=== PATIENT | female | born 1970 | race Caucasian/White ===

== ENCOUNTER 2021-04-22 18:59 | Emergency (ER) | payer OTHER, SELFPAY ==
[2021-04-22 19:11] VITALS: BP 146/89; PULSE 101; RESP 18; TEMP 37.1; O2SAT 97; BMI 18.2
[2021-04-22 22:55] LABS: Basophils # 0.1 10^3/uL (0.0-0.1); Basophils % 0.5 %; Eosinophils # 0.2 10^3/uL (0.0-0.8); Eosinophils % 1.3 %; Hematocrit 39.6 % (37.0-47.0); Hemoglobin 13.3 g/dL (11.5-15.3); Lymphocytes # 3.6 10^3/uL (0.8-4.8); Lymphocytes % 23.7 %; Mean Corpuscular HGB Conc 33.6 g/dL (30.0-36.0); Mean Corpuscular Hemoglobin 28.3 pg (28.0-34.0); Mean Corpuscular Volume 84.3 fl (81-99); Mean Platelet Volume 10.8 fL (7.4-10.4); Monocytes # 0.8 10^3/uL (0.2-0.9); Monocytes % 5.1 %; Neutrophils # 10.46 10^3/uL (1.8-7.7); Neutrophils % 69.1 %; Nucleated Red Blood Cells % 0 %; Platelet Count 308 10^3/cmm (130-400); White Blood Count 15.1 10^3/uL (4.0-10.0)
[2021-04-22 22:56] LABS: Add Urine Microscopic? NO; Charge for UA Resulting for Rev
[2021-04-22 23:00] LABS: Bilirubin Urine Neg (Negative); Blood Urine Neg (Negative); Glucose Urine UA Norm (Normal); Ketones Urine Negative (Negative); Leukocyte Esterase Urine Negative (Negative); Nitrate Urine Negative (Negative); Protein Urine Neg (Negative); Specific Gravity, Urine 1.005 (1.005-1.030); Urine Appearance Clear (CLEAR); Urine Color Yellow (Yellow); Urobilinogen Urine Norm (Negative); pH Urine 7 (5-7)
[2021-04-22 23:14] LABS: Alanine Aminotransferase 9 U/L (0-33); Albumin Level 4.5 g/dL (3.5-5.2); Alkaline Phosphatase 87 IU/L (35-105); Anion Gap 15.8 (5-19); Aspartate Amino Transferase 14 U/L (0-32); Blood Urea Nitrogen 12 mg/dL (6-20); Calcium 8.7 mg/dL (8.5-10.5); Carbon Dioxide 24 mmol/L (22-29); Chloride 102 mmol/L (98-107); Globulin 1.9 g/dL (1.3-4.6); Glucose 96 mg/dL (65-115); Lipase 20 U/L (13-60); Osmolality Calculated 286 mOsm/kg (285-295); Potassium 3.8 mmol/L (3.5-5.1); Sodium 138 mmol/L (136-145); Total Bilirubin 0.3 mg/dL (0.15-1.2); Total Protein 6.4 g/dL (6.6-8.7)
--- NOTE | 2021-04-22 23:44 | CTR_ITS ---
PROCEDURE INFORMATION: Exam: CT Abdomen And Pelvis With Contrast Exam date and time: 04/22/2021 11:44 PM Age: 50 years old Clinical indication: Other: Diarrhea; Abdominal pain; Localized; Lower; Prior surgery; Surgery date: 6+ months; Surgery type: Hyst, hernia; Patient HX: Bright red blood in stools; Additional info: Abd pain TECHNIQUE: Imaging protocol: Computed tomography of the abdomen and pelvis with contrast. Radiation optimization: All CT scans at this facility use at least one of these dose optimization techniques: automated exposure control; mA and/or kV adjustment per patient size (includes targeted exams where dose is matched to clinical indication); or iterative reconstruction. Contrast material: OMNI 300; Contrast volume: 75 ml; Contrast route: INTRAVENOUS (IV); COMPARISON: No relevant prior studies available. RADIATION DOSE METRICS: Total DLP (mGy-cm): 601.43 FINDINGS: Lungs: There is a noncalcified 5 mm nodule in the left lower lobe on axial series 2, image 6. Liver: The liver is normal. Gallbladder and bile ducts: The gallbladder is normal. There is no biliary dilation. Pancreas: The pancreas is unremarkable. Spleen: The spleen is unremarkable. Adrenal glands: The adrenal glands are unremarkable. Kidneys and ureters: The kidneys are unremarkable. No hydronephrosis or stones. No ureteral dilation. Stomach and bowel: The stomach is decompressed, preventing meaningful evaluation of wall thickness. The small bowel is nondilated. There is marked diffuse mucosal thickening in the distal descending and proximal sigmoid colon. Distal sigmoid colon is normal. The rectum is normal. Appendix: The appendix is normal. Intraperitoneal space: There is no free air or significant intraperitoneal free fluid. Vasculature: There is moderate aortic atherosclerotic disease. The portal, splenic and superior mesenteric veins are patent. Lymph nodes: There is no lymphadenopathy in the retroperitoneum, mesentery, pelvis or inguinal regions. Urinary bladder: The urinary bladder is decompressed, preventing meaningful evaluation of wall thickness. Reproductive: The uterus is absent. There is no adnexal mass or large cyst. Bones/joints: Bones are unremarkable. Soft tissues: The abdominal wall is intact. CT/CT abdomen pelvis w con* [id number] IMPRESSION: 1. Distal descending and proximal sigmoid colitis. Possible inflammatory bowel disease or infection. Ischemia is less likely in this distribution. 2. 5 mm left lower lobe pulmonary nodule. For patients at low risk (minimal or absent history of smoking and of other known risk factors), no routine follow-up is indicated. For patients at high risk (history of smoking or of other known risk factors), consider optional CT Chest at 12 months. (Reference: Marty) REFERENCES: Marty Bolaños et al. Guidelines for Management of Incidental Pulmonary Nodules Detected on CT Images: From the Fleischner Society 2017. Radiology. 2017;284(1):228-243.
--- NOTE | 2021-04-23 00:42 | ED_ITS ---
HPI - Abdominal Pain General: Chief Complaint: Abdominal Pain Stated Complaint: BM with Blood Time Seen by Provider: 04/23/21 00:02 Source: patient Mode of arrival: ambulatory Limitations: no limitations History of Present Illness: HPI narrative: 50-year-old female states that she has been having left lower quadrant abdominal pain with diffuse abdominal pain since this morning. States been a cramping type pain she rates a 7 out of 10. States she also had some bright red blood in her stool denies any vomiting. States pain is currently 7 out of 10 denies any worsening improving factors. Multiple abdominal surgeries states she is never had diverticulitis before. She denies any fevers. Associated Symptoms: Reports hematochezia; Denies chills, dysuria and fever(s) Review of Systems Const: Denies: fever(s), chills, body aches or change in appetite Eyes: Denies: blurry vision or eye discomfort ENMT: Denies: throat pain or dental pain Card: Denies: chest pain Resp: Denies: dyspnea GI: Reports: abdominal pain and hematochezia : Denies: dysuria Musc: Denies: neck pain or back pain Skin/Breast: Denies: rash Neuro: Denies: headache(s) Psych: Denies: depression Chang/Lymph: Denies: easy bruising All/Imm: Denies: urticaria PFSH ED PFSH: Surgical History (Updated 04/23/21 @ 00:42 by Oswaldo Mcgill MD) H/O: hysterectomy Social History (Updated 04/23/21 @ 00:43 by Oswaldo Mcgill MD) Substance/Drug Use: never Physical Exam Const: COMMON NORMALS: no acute distress, patient oriented x3 and healthy appearing HENMT: COMMON NORMALS: normocephalic and atraumatic HEAD & SCALP: normocephalic and atraumatic Eye: COMMON NORMALS: Equal, round and reactive pupils present and EOMs intact bilaterally PUPIL: Yes Equal, round and reactive pupils present Neck/C-Spine: COMMON NORMALS: full ROM and supple Chest: COMMONS NORMALS: normal inspection of the chest and normal palpation of entire chest wall Resp: COMMON NORMALS: normal respiratory effort, No retractions, No use of accessory muscles and clear to auscultation bilaterally AUSCULTATION: clear to auscultation bilaterally Cardio: COMMON NORMALS: regular rate, regular rhythm and No murmurs present (Cardio) RATE: regular rate RHYTHM: regular rhythm GI: COMMON NORMALS: Normal to inspection, nondistended, normoactive bowel sounds present, Soft to palpation and no masses PALPATION: Yes Soft to palpation and Yes Tenderness to palpation present (GI) Details: LLQ Extremity: COMMON NORMALS: normal to inspection and full ROM Neuro: COMMON NORMALS: patient oriented x3, moves all extremities and no focal motor deficits Psych: COMMON NORMALS: mental status grossly normal, Normal thought process pr esent and cooperative THOUGHT PROCESS: Normal thought process present Skin: COMMON NORMALS: no rashes or lesions noted and no wounds GENERAL SKIN EXAM: no rashes or lesions noted Course Vital Signs: Vital signs: Vital Signs Temperature 98.7 F 04/22/21 19:11 Pulse Rate 101 H 04/22/21 19:11 Respiratory Rate 18 04/22/21 19:11 Blood Pressure 147/84 04/23/21 01:13 Pulse Oximetry 97 04/22/21 19:11 MDM - Abdominal Pain MDM Narrative: Medical decision making narrative: Patient presents here with abdominal pain CT did show colitis she has no signs of ischemic bowel her lactate here is normal exam at discharge benign with no tenderness we will start her on antibiotics pain meds and nausea medicine she is to follow-up with general surgery return if worsening she understands agrees to plan. Lab Data: Labs: Lab Results 04/22/21 04/22/21 04/22/21 22:50 22:50 22:50 WBC 15.1 10^3/uL H 10 ^3/uL (4.0-10.0) RBC 4.70 10^6/uL 10^6 /uL (4.1-5.3) Hgb 13.3 g/dL g/dL (11.5-15.3) Hct 39.6 % % (37.0-47.0) MCV 84.3 fl fl (81-99) MCH 28.3 pg pg (28.0-34.0) MCHC 33.6 g/dL g/dL (30.0-36.0) RDW 12.0 % L % (12.1-15.1) Plt Count 308 10^3/cmm 10^3 /cmm (130-400) MPV 10.8 fL H fL (7.4-10.4) Neut % (Auto) 69.1 % % Lymph % (Auto) 23.7 % % [facility] % (Auto) 5.1 % % Eos % (Auto) 1.3 % % Baso % (Auto) 0.5 % % Neut # (Auto) 10.46 10^3/uL H 1 0^3/uL (1.8-7.7) Lymph # (Auto) 3.6 10^3/uL 10^3/ uL (0.8-4.8) [facility] # (Auto) 0.8 10^3/uL 10^3/ uL (0.2-0.9) Eos # (Auto) 0.2 10^3/uL 10^3/ uL (0.0-0.8) Baso # (Auto) 0.1 10^3/uL 10^3/ uL (0.0-0.1) Nucleated RBC % (a uto) 0 % % Nucleated RBCs # 0.0 /100WBC /100W BC Sodium 138 mmol/L mmol/L (136-145) Potassium 3.8 mmol/L mmol/L (3.5-5.1) Chloride 102 mmol/L mmol/L (98-107) Carbon Dioxide 24 mmol/L mmol/L (22-29) Anion Gap 15.8 (5-19) BUN 12 mg/dL mg/dL (6-20) Creatinine 0.4 mg/dL L mg/dL (0.5-0.9) GFR Calculation 169.0 mL/min H mL /min (90-130) Glucose 96 mg/dL mg/dL (65-115) Calculated Osmolal ity 286 mOsm/kg mOsm/ kg (285-295) Lactate Calcium 8.7 mg/dL mg/dL (8.5-10.5) Total Bilirubin 0.3 mg/dL mg/dL (0.15-1.2) AST 14 U/L U/L (0-32) ALT 9 U/L U/L (0-33) Alkaline Phosphata se 87 IU/L IU/L (35-105) Total Protein 6.4 g/dL L g/dL (6.6-8.7) Albumin 4.5 g/dL g/dL (3.5-5.2) Globulin 1.9 g/dL g/dL (1.3-4.6) Lipase 20 U/L U/L (13-60) Urine Color Yellow (Yellow) Urine Appearance Clear (CLEAR) Urine pH 7 (5-7) Ur Specific Gravit y 1.005 (1.005-1.030) Urine Protein Neg (Negative) Urine Glucose (UA) Norm (Normal) Urine Ketones Negative (Negative) Urine Blood Neg (Negative) Urine Nitrate Negative (Negative) Urine Bilirubin Neg (Negative) Urine Urobilinogen Norm mg/dL mg/dL (Negative) Ur Leukocyte Nola ase Negative (Negative) 04/23/21 02:00 WBC RBC Hgb Hct MCV MCH MCHC RDW Plt Count MPV Neut % (Auto) Lymph % (Auto) [facility] % (Auto) Eos % (Auto) Baso % (Auto) Neut # (Auto) Lymph # (Auto) [facility] # (Auto) Eos # (Auto) Baso # (Auto) Nucleated RBC % (a uto) Nucleated RBCs # Sodium Potassium Chloride Carbon Dioxide Anion Gap BUN Creatinine GFR Calculation Glucose Calculated Osmolal ity Lactate 0.5 mmol/L mmol/L (0.5-2.2) Calcium Total Bilirubin AST ALT Alkaline Phosphata se Total Protein Albumin Globulin Lipase Urine Color Urine Appearance Urine pH Ur Specific Gravit y Urine Protein Urine Glucose (UA) Urine Ketones Urine Blood Urine Nitrate Urine Bilirubin Urine Urobilinogen Ur Leukocyte Nola ase Imaging Data ^: CT Abd/Pel: Radiologist's impression: 1. Distal descending and proximal sigmoid colitis. Possible inflammatory bowel disease or infection. Ischemia is less likely in this distribution. 2. 5 mm left lower lobe pulmonary nodule. For patients at low risk (minimal or absent history of smoking and of other known risk factors), no routine follow-up is indicated. For patients at high risk (history of smoking or of other known risk factors), consider optional CT Chest at 12 months. (Reference: Marty) Discharge Plan Discharge Patient Disposition: Home Clinical Impression: Colitis Condition: Stable Prescriptions: New hydrocodone-acetaminophen 5-325 mg tablet 1 tab PO Q6H PRN (Reason: pain) Qty: 14 RF: 0 ondansetron 4 mg tablet,disintegrating 4 mg PO Q6H PRN (Reason: nausea and vomiting) Qty: 14 RF: 0 Flagyl 500 mg tablet 500 mg PO Q8H 7 Days Qty: 21 RF: 0 ciprofloxacin HCl 500 mg tablet 500 mg PO BID Qty: 14 RF: 0 Discharge Orders: Discharge ED (Routine); Ordered 04/23/21 Ordered By: Oswaldo Mcgill Referrals: Guille Callaway MD [Physician] - 1-3 days Discharge Diet: Advance as tolerated Discharge Activity: Resume usual activity Patient Instructions: Colitis (ED) Coding Level of Care Code ED Radiology Interventional Physician for Chg Fwd Exam Comprehensive
[2021-04-23] MEDS: iohexol 300 mg/mL 100 mL Btl IV (01:01)
[2021-04-23 01:13] VITALS: BP 147/84
[2021-04-23 02:22] LABS: Lactate (Lactic Acid level) 0.5 mmol/L (0.5-2.2)
--- NOTE | 2021-04-23 11:25 | DCPLANNER ---
Addendum entered by Kristie Starkey 05/24/21 11:19: Patient had a follow up appointment scheduled for 05.07.[address] Bills at general surgery - patient did attend appointment. Addendum entered by Kristie Starkey 05/03/21 12:41: Patient had a follow up appointment scheduled for Friday, May 07, 2021 at 8:[address] Bills. Clinic will call patient with appointment information. Addendum entered by Kristie Starkey 04/25/21 13:45: Patient called gearcase assembler and left a message stating that Dr. Callaway's office does not accept her insurance. data management manager spoke with patient, she stated that she would like to be referred to [facility] General Surgery if they will accept her insurance. data management manager emailed patients information to Luisana Argueta and Tiara at [facility] General Surgery. Patients information will be printed and reviewed. Clinic will call patient with appointment information. Original Note: data management manager had message to schedule a follow up appointment for patient with Dr. Callaway. data management manager faxed patients information to the office of Dr. Callaway, patients information will be reviewed. Clinic will call patient with appointment information. data management manager called patient to let patient know that her information had been faxed to Dr. Barbosa office. data management manager was unable to speak with patient at this time, a voicemail was left for patient.
== END 2021-04-23 02:44 | disposition home or self-care (01) ==
PROVIDERS: Emergency Provider Emergency Medicine
DX: K52.9 Noninfective gastroenteritis and colitis, unspecified (principal)
CPT/HCPCS: 74177; 80053; 81003; 83605; 83690; 85025; 99283; Q9967

== ENCOUNTER → 2021-06-03 13:07 | Outpatient (BNVA) | payer OTHER, SELFPAY | PROVIDERS: Visit Provider Surgery | DX: Z11.52 Encounter for screening for COVID-19 (principal) | CPT/HCPCS: 87635 ==

== ENCOUNTER 2021-06-07 06:32 | Day surgery (SDC) | payer OTHER, SELFPAY ==
[2021-06-04 15:20] VITALS: BMI 16.9
--- NOTE | 2021-06-07 07:22 | W.PM.OPSFHP ---
Same Day Surgery H&P Indication for Procedure/HPI DATE OF PROCEDURE: June 07, 2021 CHIEF COMPLAINT/INDICATIONFOR SURGICAL PROCEDURE: colonoscopy PREOP DIAGNOSIS: diagnostic PLANNED PROCEDURE: Operation Date: 06/07/21 08:00 Proposed Procedures p Colonoscopy 35238/k52.9(Not Applicable) - Aris Bills MD Medications/Allergies* Home Medications Medication Instructions Recorded Confirmed Type acetaminophen 325 mg capsule 500 mg PO PRN PRN 06/04/21 06/04/21 History (Tylenol) Allergies/Adverse Reactions Allergy/AdvReac Type Severity Reaction Status Date / Time codeine Allergy ADR-Vomitin Verified 05/07/21 08:04 g Pertinent History/Comorbid Conditions* Medical History (Updated 05/07/21 @ 16:14 by Aris Bills MD) Endometriosis Surgical History (Updated 05/07/21 @ 08:27 by Aris Bills MD) H/O: hysterectomy History of inguinal hernia repair lap-left-10+yrs S/P MARÍA-BSO Status post colonoscopy Family History (Updated 05/07/21 @ 08:12 by Tiara Fischer) Diabetes CAD (coronary artery disease) Cancer Denies family history of Dementia Chronic kidney disease (CKD) Stroke Social History Smoking and tobacco status: current every day smoker Alcohol intake: never Lives independently: Yes Household members: spouse Marital status: Pertinent Exam Findings alert, oriented x 3 and regular rate & rhythm Recommendations Surgery/Procedure today Coding Level of Care Code Acute Water Systems Engineer for Filipe Ko
[2021-06-07 07:34] VITALS: BP 117/86; PULSE 83; RESP 18; TEMP 36.4; O2SAT 96
--- NOTE | 2021-06-07 07:44 | ANES.PREANE2 ---
Pre-Anesthetic Assessment Height/Weight: Height 1.6 m Weight 43.545 kg Temp Pulse Resp BP Pulse Ox 97.6 F 83 18 117/86 96 06/07/21 07:34 06/07/21 07:34 06/07/21 07:34 06/07/21 07:34 06/07/21 07:34 Preop Diagnosis: diagnostic Operation Date: 06/07/21 08:00 Proposed Procedures p Colonoscopy 11501/k52.9(Not Applicable) - Aris Bills MD Familial anesthetic complications: None Was Beta Aryan taken within 24 hours: N/A Was Clonidine taken within 24 hours: N/A Last intake: Intake Last Liquid Date 06/06/21 Last Liquid Time 23:00 Last Solid Date 06/05/21 Last Solid Time 18:00 Social Tobacco and No alcohol Exam alert, oriented x 3, clear to auscultation bilaterally and regular rate & rhythm Airway Submandibular: within normal limits Cervical ROM: within normal limits Mallampati: Class I Dentition: partials Pulmonary None reported CV/HEM None reported METS > 4 None reported Hepatic None reported GI None reported Metabolic None reported Musc/skel None reported Neuropsych None reported Anesthetic Plan ASA status: 2 Anesthesia: Anesthesia Evaluation, General and MAC Other: I discussed with the patient risks, goals, and benefits of MAC and general anesthesia. We discussed spectrum of MAC anesthesia including conversion to general as well as possibility of recall of intraoperative stimuli including discomfort/pain. Patient agrees to proceed with MAC. Risk of > 500 ml blood loss (7ml/kg in children): No Medications/Allergies Home Medications Medication Instructions Recorded Confirmed Last Taken Type acetaminophen 325 mg capsule 500 mg PO PRN PRN 06/04/21 06/07/21 06/04/21 History (Tylenol) Allergies Allergy/AdvReac Type Severity Reaction Status Date / Time codeine Allergy ADR-Vomitin Verified 05/07/21 08:04 g PFSH Anesthesia Medical History Endometriosis Surgical History H/O: hysterectomy History of inguinal hernia repair lap-left-10+yrs S/P MARÍA-BSO Status post colonoscopy Family History Other CAD (coronary artery disease) Cancer Diabetes Denies family history of Dementia Chronic kidney disease (CKD) Stroke Social History Smoking and tobacco status: current every day smoker Alcohol intake: never Lives independently: Yes Household members: spouse Marital status: Data Anesthesia Cardiac Studies: No Data to Display
[2021-06-07] MEDS: sodium chloride 0.9% 1,000 ML 30 ML IV (07:55)
[2021-06-07 08:34] VITALS: BP 120/81; PULSE 104; RESP 16; TEMP 36.1; O2SAT 98
[2021-06-07 08:41] VITALS: BP 121/72; PULSE 109; RESP 18; O2SAT 100
--- NOTE | 2021-06-07 13:42 | ANE.PACU2 ---
Inpatient post-anesthesia follow up: Airway intact: Yes Vital signs: Temperature 97 F Pulse Rate 109 Respiratory Rate 18 Blood Pressure 121/72 Pulse Oximetry 100 Oxygen Delivery Me thod Room Air Oxygen Flow Rate 3 Fraction of Inspir ed Oxygen Hydration adequate: Yes Nausea and vomiting: No Pain level: 1 Mental status: Baseline
== END 2021-06-07 08:56 | disposition home or self-care (01) ==
PROVIDERS: Visit Provider Surgery
PROC: 0DJD8ZZ Inspection of Lower Intestinal Tract, Via Natural or Artificial Opening Endoscopic (ICD-10-PCS; CPT 45378; principal; 2021-06-07 08:00)
DX: K52.9 Noninfective gastroenteritis and colitis, unspecified (principal); K64.8 Other hemorrhoids; Z82.49 Family history of ischemic heart disease and other diseases of the circulatory system; F17.210 Nicotine dependence, cigarettes, uncomplicated
CPT/HCPCS: 45378; J2704; J7030

== ENCOUNTER → 2021-06-12 08:33 | Outpatient (BNVA) | payer OTHER, SELFPAY | PROVIDERS: Visit Provider Family Medicine | DX: Z13.220 Encounter for screening for lipoid disorders (principal); Z13.6 Encounter for screening for cardiovascular disorders; F17.218 Nicotine dependence, cigarettes, with other nicotine-induced disorders; Z76.89 Persons encountering health services in other specified circumstances | CPT/HCPCS: 80061 ==

== ENCOUNTER 2022-04-25 22:47 | Emergency (ER) | payer SELFPAY ==
[2022-04-25 22:48] VITALS: BP 130/86; PULSE 92; RESP 22; TEMP 36.8; O2SAT 100; BMI 15.9
--- NOTE | 2022-04-25 23:00 | ED_ITS ---
HPI - Abdominal Pain General: Chief Complaint: Abdominal Pain Stated Complaint: ABD PAIN/SYNCOPAL Time Seen by Provider: 04/25/22 22:56 Source: patient and family History of Present Illness: 51-year-old female with a history of colitis evidently. She is also had multiple abdominal surgeries including hysterectomy, oophorectomy, hernia repair, etc. She presents with lower abdominal pain that was sudden in onset this evening. It was so severe, that she began to feel faint, and collapsed passing out very briefly for a few seconds. Her son did not see this episode. She does not remember it. He believes she may have hit her head, although she has no headache or tenderness to her scalp. She continues to have belly pain though. No fever. No vomiting. No diarrhea. MD elicited complaint: abdominal pain Pertinent past history: other Onset (ago): hour(s) Pain Consistency: constant Location: RLQ, LLQ and Suprapubic Severity: severe Quality: stabbing Migration to: no migration Exacerbating factors: nothing Relieving factors: nothing Associated Symptoms: Reports nausea and syncope; Denies chills, constipation, diarrhea, fever(s) and vomiting Review of Systems Const: Denies: fever(s) or chills ENMT: Denies: throat pain Card: Reports: syncope; Denies: chest pain or palpitations Resp: Denies: dyspnea GI: Reports: nausea; Denies: vomiting, diarrhea or constipation : Denies: flank pain Musc: Denies: back pain PFS ED PFSH: Medical History Endometriosis Surgical History H/O: hysterectomy History of inguinal hernia repair lap-left-10+yrs S/P MARÍA-BSO Status post colonoscopy (06/07/21) Family History Other CAD (coronary artery disease) Cancer Diabetes Denies family history of Dementia Chronic kidney disease (CKD) Stroke Social History Smoking and tobacco status: current every day smoker cigarettes Alcohol intake: current Alcohol intake frequency: holidays/special occasions only Lives independently: Yes Household members: spouse Marital status: Physical Exam Const: COMMON NORMALS: no acute distress GENERAL APPEARANCE: cooperative; not ill appearing and not frail appearing HENMT: COMMON NORMALS: normocephalic, atraumatic and Normal external nose present HEAD & SCALP: normocephalic and atraumatic FACE & SINUS: normal facial exam and face symmetric NOSE: Normal external nose present Eye: COMMON NORMALS: Equal, round and reactive pupils present and EOMs intact bilaterally PUPIL: Yes Equal, round and reactive pupils present Neck/C-Spine: GENERAL: Yes trachea midline Chest: CHEST: Yes Symmetrical chest wall rise Resp: COMMON NORMALS: normal respiratory effort, No retractions, No use of accessory muscles and clear to auscultation bilaterally AUSCULTATION: clear to auscultation bilaterally Cardio: COMMON NORMALS: regular rate and regular rhythm RATE: regular rate RHYTHM: regular rhythm GI: COMMON NORMALS: Soft to palpation INSPECTION: Yes abdominal distension PALPATION: Yes Soft to palpation and Yes Tenderness to palpation present (GI) Details: LLQ and RLQ Extremity: COMMON NORMALS: no pedal edema Neuro: KEATON COMA SCALE: document GCS findings Twilight coma scale eye opening: Spontaneous [place] coma scale verbal response: Orientated Twilight coma scale motor response: Obey commands Twilight coma scale total score: 15 SENSORY EXAM: Yes extremities (intact) Psych: COMMON NORMALS: speech normal SPEECH: Yes normal speech Skin: COMMON NORMALS: no rashes or lesions noted GENERAL SKIN EXAM: no rashes or lesions noted Course Vital Signs: Vital signs: Vital Signs Temperature 98.3 F 04/25/22 22:48 Pulse Rate 82 04/26/22 00:33 Respiratory Rate 16 04/26/22 00:17 Blood Pressure 128/79 04/26/22 00:33 Pulse Oximetry 97 04/26/22 00:33 Oxygen Delivery Me thod 04/26/22 00:33 MDM - Abdominal Pain Medical Decision Making Her white blood cell count is 14. CBC is otherwise unremarkable. BMP is not remarkable. Urinalysis is negative. Liver enzymes are normal. CRP is only 3. CT shows a prominent fluid in the small bowel without dilatation suggestive of an enteritis. With elevation in her white blood cell count she will be treated. Her head CT is negative. Her EKG shows a sinus rhythm with incomplete right bundle branch block, normal axis, rate of [address] changes. Lab Data 04/25/22 23:30 04/25/22 23:30 Labs/Radiology: Radiology Impressions Abdomen/Pelvis CT 04/25/22 23:17 IMPRESSION: 1. Prominent fluid in the small bowel without dilation suggestive of an enteritis. 2. Left lower lobe 5.7 mm pulmonary nodule similar to prior exam, stability suggests a benign process. Head CT 04/25/22 23:17 IMPRESSION: No evidence of acute intracranial hemorrhage, mass effect, or midline shift. Laboratory Results WBC 13.9 10^3/uL (4.0-10.0) H 04/25/22 23:30 RBC 4.22 10^6/uL (4.1-5.3) 04/25/22 23:30 Hgb 11.7 g/dL (11.5-15.3) 04/25/22 23:30 Hct 37.1 % (37.0-47.0) 04/25/22 23:30 MCV 87.9 fl (81-99) 04/25/22 23: MCH 27.7 pg (28.0-34.0) L 04/25/22 23: MCHC 31.5 g/dL (30.0-36.0) 04/25/22 23: RDW 12.0 % (12.1-15.1) L 04/25/22 23: Plt Count 288 10^3/cmm (130-400) 04/25/22 23:30 MPV 10.4 fL (7.4-10.4) 04/25/22 23: Neut % (Auto) 74.5 % 04/25/22 23: Lymph % (Auto) 17.2 % 04/25/22 23:30 [place] % (Auto) 6.6 % 04/25/22 23:30 Eos % (Auto) 0.9 % 04/25/22 23: Baso % (Auto) 0.4 % 04/25/22 23: Neut # (Auto) 10.35 10^3/uL (1.8-7.7) H 04/25/22 23:30 Lymph # (Auto) 2.4 10^3/uL (0.8-4.8) 04/25/22 23: [place] # (Auto) 0.9 10^3/uL (0.2-0.9) 04/25/22 23:30 Eos # (Auto) 0.1 10^3/uL (0.0-0.8) 04/25/22: Baso # (Auto) 0.1 10^3/uL (0.0-0.1) 04/25/22 23:30 Nucleated RBC % (auto) 0 % 04/25/22 Nucleated RBCs # 0.0 /100WBC 04/25/22 Sodium 135 mmol/L (136-145) L 04/25/22: Potassium 3.9 mmol/L (3.5-5.1) 04/25/22: Chloride 99 mmol/L (98-107) 04/25/22: Carbon Dioxide 23 mmol/L (22-29) 04/25/22 Anion Gap 16.9 (5-19) 04/25/22 BUN 11 mg/dL (6-20) 04/25/22: Creatinine 0.5 mg/dL (0.5-0.9) 04/25/22 GFR Calculation 130.1 mL/min (90-130) H 04/25/22: Glucose 101 mg/dL (65-115) 04/25/22 Calculated Osmolality 280 mOsm/kg (285-295) L 04/25/22 Calcium 9.1 mg/dL (8.5-10.5) 04/25/22: Total Bilirubin 0.2 mg/dL (0.15-1.2) 04/25/22 AST 17 U/L (0-32) 04/25/22: ALT 9 U/L (0-33) 04/25/22: Alkaline Phosphatase 84 U/L (35-105) 04/25/22 C-Reactive Protein 3.0 mg/L (0.0-4.9) 04/25/22: Total Protein 6.4 g/dL (6.6-8.7) L 04/25/22 Albumin 4.1 g/dL (3.5-5.2) 04/25/22 Globulin 2.3 g/dL (1.3-4.6) 04/25/22 23:30 Lipase 45 U/L (13-60) 04/25/22 23:30 Urine Color Yellow (Yellow) 04/26/22 00:03 Urine Appearance Sl hazy (CLEAR) A 04/26/22 00:03 Urine pH 8 (5-7) H 04/26/22 00:03 Ur Specific [place] 1.010 (1.005-1.030) 04/26/22 00:03 Urine Protein Neg (Negative) 04/26/22 00:03 Urine Glucose (UA) Norm (Normal) 04/26/22 00:03 Urine Ketones Negative (Negative) 04/26/22 00:03 Urine Blood Neg (Negative) 04/26/22 00:03 Urine Nitrate Negative (Negative) 04/26/22 00:03 Urine Bilirubin Neg (Negative) 04/26/22 00:03 Prot Sulfosalicylic Acd Negative (Negative) 04/26/22 00:03 Urine Urobilinogen Neg mg/dL (Negative) 04/26/22 00:03 Ur Leukocyte Esterase 1+ (Negative) H 04/26/22 00:03 Urine RBC 0-4 /hpf (0-2) H 04/26/22 00:03 Urine WBC 0-4 /hpf (0-5) H 04/26/22 00:03 Ur Squamous Epith Cells 0-4 /hpf (0-5) H 04/26/22 00:03 Amorphous Sediment Not Reportable 04/26/22 00:03 Urine Bacteria 1+ /hpf (NONE) H 04/26/22 00:03 Urine Mucus Trace /hpf 04/26/22 00:03 Discharge Plan Discharge Patient Disposition: Home Clinical Impression: Enteritis, Syncope Condition: Stable Prescriptions: New metronidazole 500 mg tablet 500 mg PO TID Qty: 21 0RF ketorolac 10 mg tablet 10 mg PO TID PRN (Reason: pain) Qty: 10 0RF No Action bupropion HCl [Wellbutrin SR] 150 mg tablet sustained-release 12 hr 150 mg PO DAILY Qty: 30 2RF atorvastatin 80 mg tablet 80 mg PO DAILY Qty: 30 2RF varenicline 0.5 mg tablet 0.5 mg PO DAILY Qty: 30 0RF Rx Instructions: Daily x 1 month. acetaminophen [Tylenol] 325 mg Capsule 500 mg PO PRN PRN (Reason: Pain (Scale Score 1-3)) Discharge Orders: Discharge ED (Routine); Ordered 04/26/22 Ordered By: Jimmy Oden Discharge Diet: Advance as tolerated and Clear Liquid Discharge Activity: Increase activity as tolerated Patient Instructions: Syncope (ED), Enteritis (ED), Opioid Safety, Pain Management Activity Restrictions/Additional Instructions: Return for repeated episodes of syncope or passing out, worsening pain despite treatment, vomiting liquids or medications despite treatment, fever despite 3-4 doses of antibiotics, other concerning symptoms. Coding Level of Care Code ED Land Use Planner for Chg Fwd Exam Comprehensive
--- NOTE | 2022-04-25 23:17 | CTR_ITS ---
PROCEDURE INFORMATION: Exam: CT Abdomen And Pelvis With Contrast Exam date and time: 04/25/2022 11:49 PM Age: 51 years old Clinical indication: Abdominal pain; Localized; Lower; Prior surgery; Surgery date: 6+ months; Surgery type: Hysterectomy, hernia repair; Additional info: Lower abdominal pain TECHNIQUE: Imaging protocol: Computed tomography of the abdomen and pelvis with contrast. Radiation optimization: All CT scans at this facility use at least one of these dose optimization techniques: automated exposure control; mA and/or kV adjustment per patient size (includes targeted exams where dose is matched to clinical indication); or iterative reconstruction. Contrast material: OMNI 350; Contrast volume: 60 ml; Contrast route: INTRAVENOUS (IV); Other protocol: This patient has received [address] and 0 known cardiac nuclear medicine studies in the 12 months prior to the current study. COMPARISON: CT abdomen pelvis w con* [id number] 04/23/2021 1:01 AM RADIATION DOSE METRICS: Total DLP (mGy-cm): 277.32 FINDINGS: Lungs: Left lower lobe 5.7 mm pulmonary nodule similar to prior exam. Liver: Normal. No mass. Gallbladder and bile ducts: Normal. No calcified stones. No ductal dilation. Pancreas: Normal. No ductal dilation. Spleen: Normal. No splenomegaly. Adrenal glands: Normal. No mass. Kidneys and ureters: Normal. No hydronephrosis. Stomach and bowel: Prominent fluid in the small bowel without dilation suggestive of an enteritis. Appendix: No evidence of appendicitis. Intraperitoneal space: Unremarkable. No free air. No significant fluid collection. Vasculature: Unremarkable. No abdominal aortic aneurysm. Lymph nodes: Unremarkable. No enlarged lymph nodes. Urinary bladder: Unremarkable as visualized. Reproductive: Unremarkable as visualized. Bones/joints: Unremarkable. No acute fracture. Soft tissues: Unremarkable. CT/CT abdomen pelvis w con* [id number] IMPRESSION: 1. Prominent fluid in the small bowel without dilation suggestive of an enteritis. 2. Left lower lobe 5.7 mm pulmonary nodule similar to prior exam, stability suggests a benign process.
--- NOTE | 2022-04-25 23:17 | CTR_ITS ---
PROCEDURE INFORMATION: Exam: CT Head Without Contrast Exam date and time: 04/25/2022 11:45 PM Age: 51 years old Clinical indication: Syncope and collapse TECHNIQUE: Imaging protocol: Computed tomography of the head without contrast. Radiation optimization: All CT scans at this facility use at least one of these dose optimization techniques: automated exposure control; mA and/or kV adjustment per patient size (includes targeted exams where dose is matched to clinical indication); or iterative reconstruction. Other protocol: This patient has received [address] and 0 known cardiac nuclear medicine studies in the 12 months prior to the current study. COMPARISON: No relevant prior studies available. RADIATION DOSE METRICS: Total DLP (mGy-cm): 989.83 FINDINGS: Brain: No acute intra- or extra axial fluid collections are identified. The basal cisterns are patent. No mass effect or midline shift is seen. The almanzar-white matter differentiation is normal. Subjective mild generalized volume loss with mild prominence of the sulci, particularly along the frontal and parietal sulci. There is mild prominence of the supra vermian cistern. 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 Cerebral ventricles: The ventricles are of normal size, shape, and morphology. Paranasal sinuses: The paranasal sinuses appear grossly clear. Mastoid air cells: The mastoid air cells appear grossly clear. Orbital cavities: The orbits appear normal. Bones/joints: No acute calvarial fracture is identified. Soft tissues: No soft tissue abnormalities identified. Vasculature: There are atherosclerotic calcifications of the carotid siphons and the V4 segment of the right vertebral artery. CT/CT head wo con* [id number] IMPRESSION: No evidence of acute intracranial hemorrhage, mass effect, or midline shift.
--- NOTE | 2022-04-25 23:17 | ECG_ITS ---
[facility] Test Date: 2022-04-25 Pat Name: Maylin Wise Department: Room: Gender: Female Slitter And Rewinder: : 1970 Requested By: Jimmy Cash Order Number: [id number] Sybil MD: Willian Baker M.D. Measurements Intervals [place] Rate: 85 P: 81 TX: 149 QRS: 82 QRSD: 96 T: 68 QT: 368 QTc: 439 Interpretive Statements SINUS RHYTHM INCOMPLETE RIGHT BUNDLE BRANCH BLOCK [90+ ms QRS DURATION, TERMINAL R IN V1/V2, 40+ ms S IN I/aVL/V4/V5/V6] No previous ECG available for comparison Electronically Signed On 04-27-2022 11:25:37 CORRECTIONAL FACILITY PSYCHIATRIST by Willian Baker M.D. [email or web address]
[2022-04-25] MEDS: sodium chloride 0.9% 1,000 ML 999 ML IV (23:39)
[2022-04-25 23:43] LABS: Basophils # 0.1 10^3/uL (0.0-0.1); Basophils % 0.4 %; Eosinophils # 0.1 10^3/uL (0.0-0.8); Eosinophils % 0.9 %; Hematocrit 37.1 % (37.0-47.0); Hemoglobin 11.7 g/dL (11.5-15.3); Lymphocytes # 2.4 10^3/uL (0.8-4.8); Lymphocytes % 17.2 %; Mean Corpuscular HGB Conc 31.5 g/dL (30.0-36.0); Mean Corpuscular Hemoglobin 27.7 pg (28.0-34.0); Mean Corpuscular Volume 87.9 fl (81-99); Mean Platelet Volume 10.4 fL (7.4-10.4); Monocytes # 0.9 10^3/uL (0.2-0.9); Monocytes % 6.6 %; Neutrophils # 10.35 10^3/uL (1.8-7.7); Neutrophils % 74.5 %; Nucleated Red Blood Cells % 0 %; Platelet Count 288 10^3/cmm (130-400); Red Blood Count 4.22 10^6/uL (4.1-5.3); White Blood Count 13.9 10^3/uL (4.0-10.0)
[2022-04-25] MEDS: iohexol 350 mg/mL 500 mL Btl (per mL) IV (23:56)
[2022-04-25 23:59] LABS: Alanine Aminotransferase 9 U/L (0-33); Albumin Level 4.1 g/dL (3.5-5.2); Alkaline Phosphatase 84 U/L (35-105); Blood Urea Nitrogen 11 mg/dL (6-20); Calcium 9.1 mg/dL (8.5-10.5); Carbon Dioxide 23 mmol/L (22-29); Chloride 99 mmol/L (98-107); Globulin 2.3 g/dL (1.3-4.6); Glomerular Filtration Rate 130.1 mL/min (90-130); Glucose 101 mg/dL (65-115); Lipase 45 U/L (13-60); Osmolality Calculated 280 mOsm/kg (285-295); Sodium 135 mmol/L (136-145); Total Bilirubin 0.2 mg/dL (0.15-1.2); Total Protein 6.4 g/dL (6.6-8.7)
[2022-04-26 00:01] LABS: Anion Gap 16.9 (5-19); Aspartate Amino Transferase 17 U/L (0-32); Potassium 3.9 mmol/L (3.5-5.1)
[2022-04-26 00:15] VITALS: RESP 16; O2SAT 98
[2022-04-26] MEDS: ondansetron 2 mg/ML SDV 2 mL 4 MG IVP (00:15)
[2022-04-26] MEDS: morphine 4 mg/mL SDV 1 mL IVP (00:15)
[2022-04-26 00:16] LABS: Urine Appearance SL Hazy (CLEAR); Urine Color Yellow (Yellow); pH Urine 8 (5-7)
[2022-04-26 00:17] VITALS: BP 115/71; PULSE 84; RESP 16; O2SAT 97
[2022-04-26 00:17] LABS: Add Urine Microscopic? YES; Bilirubin Urine Neg (Negative); Blood Urine Neg (Negative); Glucose Urine UA Norm (Normal); Ketones Urine Negative (Negative); Leukocyte Esterase Urine 1+ (Negative); Nitrate Urine Negative (Negative); Protein Urine Neg (Negative); Sulfosalicylic Acid Urine Negative (Negative); Urobilinogen Urine Neg (Negative)
[2022-04-26 00:19] LABS: Add Urine Culture? No; Bacteria Urine 1+ /hpf; Mucus Urine TRACE /hpf; RBC Urine 0-4 /hpf (0-2); Squamous Epithelial Cell Urine 0-4 /hpf (0-5); WBC Urine 0-4 /hpf (0-5)
[2022-04-26 00:33] VITALS: BP 128/79; PULSE 82; O2SAT 97
[2022-04-26] MEDS: metroNIDAZOLE 500 MG Tablet PO (01:15)
[2022-04-26] MEDS: ciprofloxacin 500 mg Tablet PO (01:15)
== END 2022-04-26 01:18 | disposition home or self-care (01) ==
PROVIDERS: Emergency Provider Emergency Medicine
DX: K52.9 Noninfective gastroenteritis and colitis, unspecified (principal); R55 Syncope and collapse; F17.210 Nicotine dependence, cigarettes, uncomplicated
CPT/HCPCS: 70450; 74177; 80053; 81001; 83690; 85025; 86140; 93005; 96361; 96374; 96375; 99285; J2270; J2405; J7030; Q9967

== ENCOUNTER 2023-08-29 19:27 | Emergency (ER) | payer SELFPAY ==
[2023-08-29 19:27] VITALS: BP 124/73; PULSE 78; RESP 16; TEMP 37.1; O2SAT 96; BMI 16.8
--- NOTE | 2023-08-29 19:38 | CTR_ITS ---
PROCEDURE INFORMATION: Exam: CT Head Without Contrast Exam date and time: 08/29/2023 7:59 PM Age: 53 years old Clinical indication: Pain; Headache; Patient HX: Severe occipital AGGARWAL with dizziness. ; Additional info: Worst headache of her life TECHNIQUE: Imaging protocol: Computed tomography of the head without contrast. Radiation optimization: All CT scans at this facility use at least one of these dose optimization techniques: automated exposure control; mA and/or kV adjustment per patient size (includes targeted exams where dose is matched to clinical indication); or iterative reconstruction. COMPARISON: CT head wo con* [id number] 04/25/2022 11:45 PM RADIATION DOSE METRICS: Total DLP (mGy-cm): 941.08 FINDINGS: Brain: The brain is unremarkable. There is no mass effect or significant white matter disease. There is no acute intracranial hemorrhage. There is partially imaged right cerebellar tonsillar ectopia, similar to 04/25/2022. Cerebral ventricles: There is no significant ventricular dilation. The basal cisterns are unremarkable. Paranasal sinuses: The paranasal sinuses are clear. Mastoid air cells: The mastoid air cells are clear. Bones: The calvarium is intact. Soft tissues: The visible extracranial soft tissues are unremarkable. CT/CT head wo con* [id number] IMPRESSION: No acute intracranial abnormality.
[2023-08-29 20:20] LABS: Basophils % 0.5 %; Eosinophils % 0.3 %; Hematocrit 39.8 % (36-47); Lymphocytes # 0.7 10^3/uL (0.8-4.8); Lymphocytes % 8.7 %; Mean Corpuscular HGB Conc 33.9 g/dL (30-55); Mean Corpuscular Hemoglobin 28.5 pg (27-33); Mean Platelet Volume 10.1 fL (7.4-10.4); Monocytes # 0.7 10^3/uL (0.2-0.9); Monocytes % 9.2 %; Neutrophils % 81.2 %; Nucleated Red Blood Cells % 0 %; Platelet Count 276 10^3/cmm (157-399); Red Blood Count 4.74 10^6/uL (3.85-5.65); Red Cell Distribution Width 11.9 % (12.1-15.1); White Blood Count 7.51 10^3/uL (3.29-11.43)
[2023-08-29] MEDS: diphenhydrAMINE 50 mg/mL SDV 1mL 25 MG IVP (20:23)
[2023-08-29] MEDS: prochlorperazine 10 mg/2 mL Inj IVP (20:24)
[2023-08-29] MEDS: sodium chloride 0.9% 500 ML IV (20:25)
[2023-08-29 20:34] VITALS: BP 128/82; PULSE 80; O2SAT 95
[2023-08-29 20:38] LABS: Add Urine Microscopic? NO; Charge for UA Resulting for Rev
[2023-08-29 20:45] LABS: Glucose Urine UA Norm (Normal); Protein Urine Neg (Negative); Specific Gravity, Urine 1.005 (1.005-1.030); Urine Appearance Clear (CLEAR); Urine Color Yellow (Yellow); pH Urine 7 (5-7)
[2023-08-29 20:46] LABS: Bilirubin Urine Neg (Negative); Blood Urine Neg (Negative); Ketones Urine 1+ (Negative); Leukocyte Esterase Urine Negative (Negative); Nitrate Urine Negative (Negative); Urobilinogen Urine Neg (Negative)
[2023-08-29 21:12] LABS: Alanine Aminotransferase 8 U/L (0-33); Albumin Level 4.3 g/dL (3.5-5.2); Alkaline Phosphatase 86 U/L (35-105); Anion Gap 19.8 (5-19); Aspartate Amino Transferase 14 U/L (0-32); Blood Urea Nitrogen 8 mg/dL (6-20); Calcium 8.9 mg/dL (8.5-10.5); Carbon Dioxide 19 mmol/L (22-29); Chloride 107 mmol/L (98-107); Creatinine Clr Calc Pharmacy 73.7634; Glomerular Filtration Rate 104.6 mL/min (90-130); Glucose 104 mg/dL (65-115); Magnesium 1.9 mg/dL (1.7-2.3); Osmolality Calculated 293 mOsm/kg (285-295); Potassium 3.8 mmol/L (3.5-5.1); Sodium 142 mmol/L (136-145); Total Bilirubin 0.4 mg/dL (0.15-1.2); Total Protein 7.3 g/dL (6.6-8.7)
[2023-08-29 21:34] VITALS: BP 121/68; PULSE 76; O2SAT 96
[2023-08-29 22:34] VITALS: BP 123/69; PULSE 72; O2SAT 96
[2023-08-29 23:29] VITALS: BP 124/67; PULSE 70; O2SAT 97
--- NOTE | 2023-08-29 23:30 | ED_ITS ---
HPI - Headache 2 General: Chief Complaint: Nausea/Vomiting/Diarrhea Stated Complaint: HEADACHE Time Seen by Provider: 08/29/23 19:38 Source: patient and family Mode of arrival: ambulatory Limitations: no limitations History of Present Illness: Severe headache, worst of her life, coming up the back of her head and going to the front. Causing some nausea vomiting secondary to pain. Does not normally have a history of migraines. No recent trauma. Does call some blurry vision that is transient positive photophobia. Review of Systems 2 General: Reports: 10 or more systems reviewed and unremarkable except in HPI and below PFSH ED 2 PFSH: Medical History Endometriosis Surgical History H/O: hysterectomy History of inguinal hernia repair lap-left-10+yrs S/P MARÍA-BSO Status post colonoscopy (06/07/21) Family History Other CAD (coronary artery disease) Cancer Diabetes Denies family history of Dementia Chronic kidney disease (CKD) Stroke Social History Smoking and tobacco/nicotine status: current every day tobacco/nicotine user cigarettes Alcohol intake: current Alcohol intake frequency: holidays/special occasions only Substance/Drug Use: never Lives independently: Yes Household members: spouse Marital status: Physical Exam 2 Const: COMMON NORMALS: no acute distress, average body habitus, patient oriented x3, healthy appearing, alert and well nourished GENERAL APPEARANCE: well kempt and well developed HENMT: COMMON NORMALS: normocephalic, atraumatic, external ears normal and moist oral mucous membranes HEAD & SCALP: normocephalic and atraumatic E XTERNAL EAR: Yes external ears normal Eye: COMMON NORMALS: Equal, round and reactive pupils present, EOMs intact bilaterally and conjunctivae normal CONJUNCTIVA: Yes conjunctivae normal P UPIL: Yes Equal, round and reactive pupils present Neck/C-Spine: COMMON NORMALS: full ROM, no lymphadenopathy and supple Chest: CHEST: Yes Symmetrical chest wall rise and No Surgical scars present (Chest) Resp: COMMON NORMALS: normal respiratory effort, No retractions, No use of accessory muscles and clear to auscultation bilaterally AUSCULTATION: clear to auscultation bilaterally Cardio: COMMON NORMALS: regular rate, regular rhythm, S1 normal heart sound present, S2 normal heart sound present, No gallops present (Cardio), No clicks present (Cardio), No murmurs present (Cardio) and No rub (Cardio) RATE: r egular rate RHYTHM: regular rhythm HEART SOUNDS: S1 normal heart sound present, S2 normal heart sound present and no murmurs PERIPHERAL PULSES: o ther (Radial pulses 2+ and symmetric) GI: COMMON NORMALS: Soft to palpation, non-tender and no masses INSPECTION: No abdominal distension PALPATION: Yes Soft to palpation, No Guarding due to palpation present (GI) and No Rebound tenderness present : COMMON NORMALS: Yes no CVA tenderness BLADDER/KIDNEY EXAM: Yes no CVA tenderness Back/Pelvis: COMMON NORMALS: no CVA tenderness Extremity: COMMON NORMALS: normal to inspection, full ROM, capillary refill normal and no clubbing, cyanosis or edema Neuro: COMMON NORMALS: patient oriented x3 SENSORIUM/ORIENTATION: Yes alert Psych: APPEARANCE: Yes well kempt Skin: COMMON NORMALS: no rashes or lesions noted, no wounds, turgor normal and no jaundice GENERAL SKIN EXAM: no rashes or lesions noted and turgor normal Course 2 Vital Signs: Vital signs: Vital Signs Temperature 98.8 F 08/29/23 19:27 Pulse Rate 70 08/29/23 23:29 Respiratory Rate 16 08/29/23 19:27 Blood Pressure 124/67 08/29/23 23:29 Pulse Oximetry 97 08/29/23 23:29 Oxygen Delivery Me thod Room Air 08/29/23 23:29 MDM - Headache Medical Decision Making Patient given medications, headache improved. Watched for prolonged time to make sure of no dystonic reactions given first time did receive Compazine. Patient will be discharged home with family. Medical Records I reviewed the patient's medical records. Lab Data I reviewed the patient's lab results. 08/29/23 20:15 08/29/23 20:[address] 08/29/23 19:38 IMPRESSION: No acute intracranial abnormality. Laboratory Results WBC 7.51 10^3/uL (3.29-11.43) 08/29/23 20:15 RBC 4.74 10^6/uL (3.85-5.65) 08/29/23 20:15 Hgb 13.50 g/dL (11.27-16.99) 08/29/23 20:15 Hct 39.8 % (36-47) 08/29/23 20:15 MCV 84.0 fl (85-98) L 08/29/23 20:15 MCH 28.5 pg (27-33) 08/29/23 20:15 MCHC 33.9 g/dL (30-55) 08/29/23 20:15 RDW 11.9 % (12.1-15.1) L 08/29/23 20:15 Plt Count 276 10^3/cmm (157-399) 08/29/23 20:15 MPV 10.1 fL (7.4-10.4) 08/29/23 20:15 Neut % (Auto) 81.2 % 08/29/23 20:15 Lymph % (Auto) 8.7 % 08/29/23 20:15 [place] % (Auto) 9.2 % 08/29/23 20:15 Eos % (Auto) 0.3 % 08/29/23 20:15 Baso % (Auto) 0.5 % 08/29/23 20:15 Neut # (Auto) 6.10 10^3/uL (1.8-7.7) 08/29/23 20:15 Lymph # (Auto) 0.7 10^3/uL (0.8-4.8) L 08/29/23 20:15 [place] # (Auto) 0.7 10^3/uL (0.2-0.9) 08/29/23 20:15 Eos # (Auto) 0.0 10^3/uL (0.0-0.8) 08/29/23 20:15 Baso # (Auto) 0.0 10^3/uL (0.0-0.1) 08/29/23 20:15 Nucleated RBC % (auto) 0 % 08/29/23 20:15 Nucleated RBCs # 0.0 /100WBC 08/29/23 20:15 Sodium 142 mmol/L (136-145) 08/29/23 20:15 Potassium 3.8 mmol/L (3.5-5.1) 08/29/23 20:15 Chloride 107 mmol/L (98-107) 08/29/23 20:15 Carbon Dioxide 19 mmol/L (22-29) L 08/29/23 20:15 Anion Gap 19.8 (5-19) H 08/29/23 20:15 BUN 8 mg/dL (6-20) 08/29/23 20:15 Creatinine 0.6 mg/dL (0.5-0.9) 08/29/23 20:15 GFR Calculation 104.6 mL/min (90-130) 08/29/23 20:15 Glucose 104 mg/dL (65-115) 08/29/23 20:15 Calculated Osmolality 293 mOsm/kg (285-295) 08/29/23 20:15 Calcium 8.9 mg/dL (8.5-10.5) 08/29/23 20:15 Magnesium 1.9 mg/dL (1.7-2.3) 08/29/23 20:15 Total Bilirubin 0.4 mg/dL (0.15-1.2) 08/29/23 20:15 AST 14 U/L (0-32) 08/29/23 20:15 ALT 8 U/L (0-33) 08/29/23 20:15 Alkaline Phosphatase 86 U/L (35-105) 08/29/23 20:15 Total Protein 7.3 g/dL (6.6-8.7) 08/29/23 20:15 Albumin 4.3 g/dL (3.5-5.2) 08/29/23 20:15 Globulin 3.0 g/dL (1.3-4.6) 08/29/23 20:15 Urine Color Yellow (Yellow) 08/29/23 19:50 Urine Appearance Clear (CLEAR) 08/29/23 19:50 Urine pH 7 (5-7) 08/29/23 19:50 Ur Specific [place] 1.005 (1.005-1.030) 08/29/23 19:50 Urine Protein Neg (Negative) 08/29/23 19:50 Urine Glucose (UA) Norm (Normal) 08/29/23 19:50 Urine Ketones 1+ (Negative) H 08/29/23 19:50 Urine Blood Neg (Negative) 08/29/23 19:50 Urine Nitrate Negative (Negative) 08/29/23 19:50 Urine Bilirubin Neg (Negative) 08/29/23 19:50 Urine Urobilinogen Neg mg/dL (Negative) 08/29/23 19:50 Ur Leukocyte Esterase Negative (Negative) 08/29/23 19:50 All radiology interpretation(s) finalized by discharge ED provider radiology interpretation(s): Personally reviewed CT of the head and I see no acute abnormality, Discharge Plan Discharge Patient Disposition: Home Clinical Impression: Migraine headache Condition: Stable Prescriptions: No Action bupropion HCl [Wellbutrin SR] 150 mg tablet sustained-release 12 hr 150 mg PO DAILY Qty: 30 2RF atorvastatin 80 mg tablet 80 mg PO DAILY Qty: 30 2RF varenicline 0.5 mg tablet 0.5 mg PO DAILY Qty: 30 0RF Rx Instructions: Daily x 1 month. acetaminophen [Tylenol] 325 mg Capsule 500 mg PO PRN PRN (Reason: Pain (Scale Score 1-3)) metronidazole 500 mg tablet 500 mg PO TID Qty: 21 0RF ketorolac 10 mg tablet 10 mg PO TID PRN (Reason: pain) Qty: 10 0RF Discharge Orders: Discharge ED (Routine); Ordered 08/29/23 Ordered By: Juan Alberto Interiano Discharge Diet: Usual diet Discharge Activity: Resume usual activity Patient Instructions: Acute Headache (ED) Coding Level of Care Code ED Peer Specialist for Filipe Ko
[2023-08-29 23:37] VITALS: BP 122/70; PULSE 99; RESP 16; O2SAT 97
== END 2023-08-29 23:41 | disposition home or self-care (01) ==
PROVIDERS: Emergency Provider Emergency Medicine
DX: G43.909 Migraine, unspecified, not intractable, without status migrainosus (principal); F17.210 Nicotine dependence, cigarettes, uncomplicated
CPT/HCPCS: 36415; 70450; 80053; 81003; 83735; 85025; 96361; 96374; 96375; 99285; J0780; J1200; J7040

== ENCOUNTER → 2024-12-21 11:11 | Outpatient (BNVA) | payer OTHER, SELFPAY | PROVIDERS: Visit Provider Specialist | DX: M25.511 Pain in right shoulder (principal) | CPT/HCPCS: 73030 ==

== ENCOUNTER 2025-01-16 06:55 | Outpatient (CLI) | payer OTHER, SELFPAY ==
--- NOTE | 2025-01-16 07:15 | MR_ITS ---
WS: [id number] MRI RIGHT SHOULDER HISTORY: shoulder injury COMPARISON: Radiograph 12/21/2024 TECHNIQUE: Multiplanar sequences of the shoulder joint are submitted. Mild AC joint arthritis. Narrowing of the joint space with small osteophytes and intermediate synovial signal. Small amount of fluid in the subacromial bursa. Mild subacromial impingement. There is very slight downsloping of the acromion. No os acromion. Biceps tendon remains in normal position. There is small amount of increased fluid in the biceps tendon sheath. Normal position of the glenohumeral joint. Mild narrowing of the glenohumeral joint no rotator cuff atrophy or edema. Moderate thickening and increased T2 signal in the distal supraspinatus tendon consistent with tendinopathy. No tear identified. There is additional increased T2 signal in the supraspinatus tendon directly over the superior humeral head at the site of subacromial impingement. Subscapularis tendon is intact with very mild intermediate signal distally and thickening of the tendon. Infraspinatus and teres minor are negative. No labral tear identified. Subchondral cystic changes in the superior humeral head. Coracohumeral ligament is normal. No thickening of the axillary pouch. MR/MR shoulder RT wo con* [id number] IMPRESSION: 1. 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 2. Moderate tendinopathy in the distal supraspinatus tendon but no tear identi fied. 3. Additional tendinopathy noted over the superior humeral head at the site of subacromial impingement. 4. Mild subscapularis tendinopathy. 5. Subchondral cyst in the superior humeral head. 6. No labral tear.
== END 2025-01-16 06:56 | disposition home or self-care (01) ==
LOC: RAD 06:57
PROVIDERS: Visit Provider Specialist
DX: M19.011 Primary osteoarthritis, right shoulder (principal); M25.711 Osteophyte, right shoulder; M75.41 Impingement syndrome of right shoulder
CPT/HCPCS: 73221

== ENCOUNTER → 2025-03-15 13:15 | Outpatient (BNVA) | payer OTHER, SELFPAY | PROVIDERS: Visit Provider Specialist | DX: M19.011 Primary osteoarthritis, right shoulder (principal); M25.811 Other specified joint disorders, right shoulder | CPT/HCPCS: 73030 ==